=== PATIENT | female | born 1975 | race Caucasian/White ===

== ENCOUNTER 2020-01-12 09:45 | Observation (INO) ==
[2020-01-12] MEDS ORDERED: MoRPHine SULFATE 4 MG/ML 1 ML CARP\\VIAL IV STA (10:35)
[2020-01-12] MEDS ORDERED: SODIUM CHLORIDE 0.9% 1000ML 1,000 ML IV ONE (10:35)
[2020-01-12] MEDS ORDERED: ONDANSETRON INJ 2 MG/ML 2 ML VIAL IV STA (10:41)
--- NOTE | 2020-01-12 10:41 | Emergency Department Note ---
Impression & Plan Acute appendicitis, Ileus ED Provider Note CHIEF COMPLAINT: Right lower abdominal pain HISTORY OF PRESENTING ILLNESS: This is a 44-year-old female who presents to the emergency department by private vehicle with complaint of right lower abdominal pain that started last night. The patient states that the pain has been constant, dull ache, worse with movement, better with rest, and she rates the pain 10/10. She has not tried any medications for the pain. She has had associated nausea, but denies any vomiting. She denies diarrhea or constipation and had a normal bowel movement this morning. She went to see her PCP today, who referred her to the emergency department for further evaluation. She denies any chest pain, shortness of breath, back pain, dizziness or syncope, urinary co mplaints, or unusual rash. She has not had anything to eat or drink since last night around dinnertime. REVIEW OF SYSTEMS: A complete 10 point review of systems was reviewed with the patient with pertinent positives and negatives as per history of present illness. All else were negative. PAST MEDICAL HISTORY: Anxiety, history of gastric bypass surgery SOCIAL HISTORY: Lives at home with family, she denies tobacco use ALLERGIES: Reviewed in chart and with the patient PHYSICAL EXAM: CONSTITUTIONAL: Pleasant and cooperative. Nontoxic-appearing and in no acute distress. Mildly dehydrated, but otherwise well appearing and well nourished. HEENT: Normocephalic, atraumatic. PERRL, EOMI. Pharynx normal. Tacky mucous membranes NECK: Supple, full active range of motion without discomfort. RESPIRATORY: Clear to auscultation bilaterally with no wheezing, crackles, rhonchi or stridor. Equal expansion bilaterally. CARDIOVASCULAR: Regular rate and rhythm with no murmurs, rubs or gallops. Normal peripheral perfusion. No edema. GASTROINTESTINAL: Significantly tender to palpation in the right lower quadrant, positive rebound and slight guarding, tender with light percussion over the right lower quadrant. Positive Rovsing. The remainder of the abdomen is otherwise nontender, soft and nondistended. No palpable masses or HSM. Bowel sounds present in all quadrants. No CVA tenderness bilaterally. MUSCULOSKELETAL: Full range of motion of all joints without discomfort. INTEGUMENTARY: No rash or other significant dermatologic conditions noted. NEUROLOGIC: Alert and oriented X 4 with normal affect. Normal strength and sensation in all 4 extremities. Normal speech. Normal gait observed. ED COURSE AND MEDICAL DECISION MAKING: CC: Patient presenting with complaint of right lower quadrant abdominal pain DIFFERENTIAL DIAGNOSIS: Includes, but not limited to appendicitis, mesenteric adenitis, colitis, gastroenteritis, diverticulitis, cholecystitis, ovarian cyst, ovarian torsion, ectopic , ileus, small bowel obstruction, among others. INTERPRETATION OF LABS: Marked leukocytosis with left shift, no anemia, normal platelets, no significant electrolyte abnormalities, normal renal function, normal liver enzymes and lipase. UA appears contaminated with large epithelial cells negative for bacteria, urine negative. IMAGING: ABDOMEN AND PELVIS CT WITH IV CONTRAST CT DOSE: 369.97 mGy.cm HISTORY: Acute right lower quadrant abdominal pain RLQ pain TECHNIQUE: Multiaxial CT images of the abdomen and pelvis were performed following the IV administration of 94 cc of Optiray 320, A dose lowering technique was utilized adhering to the principles of ALARA. COMPARISON STUDY: None FINDINGS: Trace pleural effusions with minimal dependent subsegmental bibasilar atelectasis. No pneumatosis or pneumoperitoneum. The imaged inferior cardiac chambers are unremarkable. The spleen, pancreas, adrenal glands, gallbladder and liver are unremarkable. Patency of the hepatic and portal veins. Normal appearing kidneys. Urinary bladder is unremarkable. Follicular changes of the ovaries. Uterus is within normal limits. Aorta and IVC are unremarkable. No adenopathy. Postoperative changes of prior Evangelina-en-Y gastric bypass. There is a dropped surgical clip within the inferior right hemipelvis. The majority of the large bowel is decompressed with a few air-fluid levels noted within the cecum and terminal ileum suggestive of sentinel ileus. The appendix is dilated measuring up to 10 mm and fluid-filled with mild wall thickening. There is a 5 mm appendicolith noted within the proximal lumen. Mild periappendiceal stranding without drainable fluid collection. Bilateral breast implants. Soft tissues are otherwise unremarkable. Bones appear intact. IMPRESSION: 1. Acute uncomplicated appendicitis with 5 mm appendicolith. No evidence of perforation or drainable fluid collection. 2. Air-fluid levels of the cecum and terminal ileum are suggestive of focal ileu s. No bowel obstruction. 3. Prior Evangelina-en-Y gastric bypass. MEDICATION RECONCILIATION: I attest that I have personally reviewed the patient's current medication list. INITIAL VITAL SIGNS REVIEW: I reviewed the patient's initial vital signs and interpret them as follows: T: Low-grade fever; BP: Normotensive; HR: Within normal limits; RR: Within normal limits; Pulse Ox: Within normal limits on room air. Blood pressure screening: The patient was found to have normal blood pressure on screening and does not require follow-up for repeat blood pressure check. MDM SUMMARY: Patient was evaluated at bedside, history and physical exam performed. Patient is alert and oriented, no acute distress, resting calmly in stretcher. She is noted to have a low-grade fever of 37.8, but is nontoxic-appearing. She is point tender in the right lower quadrant with positive rebound and slight guarding, no acute abdomen. Orders were placed at bedside for labs, UA, IV fluid bolus for hydration, IV mo rphine for pain, IV Zofran for nausea, CT abdomen/pelvis with IV contrast to evaluate for abdominal pain. Patient discussed with Dr. Kingston, who agrees with my assessment, plan, and disposition. Labs and imaging reviewed as above, labs notable for marked leukocytosis with left shift. CT imaging shows acute uncomplicated appendicitis without perforation or abscess, as well as findings suggestive of a focal ileus but no bowel obstruction. I spoke on the phone with general surgery, they agreed to evaluate the patient for probable admission and OR. Surgery team is in the OR currently and it may be a while till they are able to evaluate the patient. 2 g cefoxitin IV ordered for antibiotic prophylaxis per request of surgical team. Patient reassessed multiple times throughout ED stay, she has remained hemodynamically stable, and reports her pain is improved after the morphine. The patient was updated on all results and plan for admission and plans for surgery today, patient verbalized understanding and was agreeable to this plan. I answered all questions to the best of my ability. The patient was stable at time of admission. The chart was completed utilizing [employer] Speech voice recognition software. Grammatical errors, random word insertions, pronoun errors, and incomplete sente nces are an occasional consequence of this system due to software limitations, ambient noise, and hardware issues. Any formal questions or concerns about the content, text, or information contained within the body of this dictation should be directly addressed to the nurse practitioner for clarification. Past Med/Surg History Medical History (Updated 01/12/20 @ 16:55 by RADHA Menjivar) Seizure Surgical History S/P breast augmentation S/P gastric bypass Social History Smoking Status: Never smoker Second Hand Exposure: No; Do You Dip or Chew Tobacco: No; Tobacco Cessation Education Requested by Patient: No Hx Alcohol Use: Yes Hx Substance Use: No Preferred Language: Samoan Communication Ability: Effective Basket Weaver Required: No Beliefs That Will Affect Care: None Current Living Situation: Alone Other Information That Helps Us Care for You: No Feels Safe at Home: Yes Safety Concerns: Feels Safe At This Time Allergies Allergies Allergy/AdvReac Type Severity Reaction Status Date / Time codeine AdvReac Verified 01/12/20 15:37 Home Meds Home Medications Medication Instructions Recorded Confirmed biotin 0 mg PO QAM 01/12/20 01/12/20 cholecalciferol (vitamin D3) 0 mcg PO QAM 01/12/20 01/12/20 [Vitamin D3] escitalopram oxalate [Lexapro] 0 mg PO QDL 01/12/20 01/12/20 ferrous sulfate [iron] 325 mg PO QAM 01/12/20 01/12/20 folic acid 0 mg PO QAM 01/12/20 01/12/20 topiramate [Topamax] 100 mg PO BID 01/12/20 01/12/20 Results & Data (ED) Vital Signs Vital Signs - 24 hr 01/12/20 10:15 01/12/20 12:50 01/12/20 14:00 Temperature 37.8 C H Temperature Source Oral Pulse Rate 82 Pulse Rate [Right Finger] 88 75 Respiratory Rate 16 18 18 Respiratory Effort / Characteristics Non-Labored Spontaneous Non-Labored Spontaneous Non-Labored Spontaneous Respiratory Depth Normal Normal Normal Respiratory Pattern Regular Blood Pressure 113/67 Blood Pressure [Left Arm] 117/66 105/66 Blood Pressure Mean 82 Blood Pressure Mean [Left Arm] 83 79 Blood Pressure Position Sitting Blood Pressure Position [Left Arm] Lying Lying Pulse Oximetry 99 99 100 Oxygen Delivery Method Room Air Room Air Room Air Sepsis Recent Fever Within 48 Hours No Sepsis New/Unexplained Change in Mental Status No Sepsis Action Taken by Nursing No Action Required 01/12/20 15:31 Temperature 37.8 C H Temperature Source Oral Pulse Rate Pulse Rate [Right Finger] 85 Respiratory Rate 18 Respiratory Effort / Characteristics Non-Labored Spontaneous Respiratory Depth Normal Respiratory Pattern Regular Blood Pressure Blood Pressure [Left Arm] 113/74 Blood Pressure Mean Blood Pressure Mean [Left Arm] 87 Blood Pressure Position Blood Pressure Position [Left Arm] Semi-fowlers Pulse Oximetry 100 Oxygen Delivery Method Room Air Sepsis Recent Fever Within 48 Hours Sepsis New/Unexplained Change in Mental Status Sepsis Action Taken by Nursing Laboratory Data Result diagrams: 01/12/20 11:05 01/12/20 12:10 Lab Results 01/12/20 01/12/20 01/12/20 Range/Units 11:05 11:05 11:05 WBC 22.05 H (4.8-10.8) K/uL RBC 4.65 (4.2-5.4) M/uL Hgb 14.1 (12.0-16.0) g/dL Hct 43.3 (37-47) % MCV 93.1 (80-100) fL MCH 30.3 (25-34) pg MCHC 32.6 (32-36) g/dL RDW Std Deviation 45.6 (36.4-46.3) fL RDW Coeff of Kylee 13.3 (11.5-14.5) % Plt Count 215 (130-400) K/uL MPV 11.9 H (7.4-10.4) fL Immature Gran % (Auto) 0.3 % Neut % (Auto) 89.9 % Lymph % (Auto) 4.1 % Charles % (Auto) 5.6 % Eos % (Auto) 0.0 % Baso % (Auto) 0.1 % Neut # (Auto) 19.83 H (1.4-6.5) K/uL Lymph # (Auto) 0.90 L (1.2-3.4) K/uL Charles # (Auto) 1.23 H (0.11-0.59) K/uL Eos # (Auto) 0.00 (0-0.5) K/uL Baso # (Auto) 0.02 (0-0.2) K/uL Immature Gran # (Auto) 0.07 H (0.00-0.02) K/uL Sodium 139 (136-145) mmol/L Potassium (3.5-5.1) mmol/L Chloride 111 H (98-107) mmol/L Carbon Dioxide 21 (21-32) mmol/L Anion Gap 7.0 (3-11) BUN 12 (7-18) mg/dl Creatinine 0.71 (0.6-1.2) mg/dl Est Cr Clr Drug Dosing 96.2 ml/min Est GFR ( Amer) 120.1 Est GFR (Non-Af Amer) 103.6 BUN/Creatinine Ratio 17.2 (10-20) Glucose 112 H (70-99) mg/dl Calcium 8.7 (8.5-10.1) mg/dl Total Bilirubin 0.6 (0.2-1) mg/dl AST (15-37) U/L ALT 21 (12-78) U/L Alkaline Phosphatase 45 (45-117) U/L Total Protein 7.5 (6.4-8.2) gm/dl Albumin 3.5 (3.4-5.0) gm/dl Globulin 4.0 (2.5-4.0) gm/dl Albumin/Globulin Ratio 0.9 (0.9-2) Lipase 96 (73-393) U/L Urine Color Yellow Urine Appearance Clear (Clear) Urine pH 7.0 (4.5-7.5) Ur Specific [place] 1.024 (1.000-1.030) Urine Protein Trace H (Negative) Urine Glucose (UA) 1+ H (Negative) Urine Ketones 1+ H (Negative) Urine Blood 1+ H (Negative) Urine Nitrite Negative (Negative) Urine Bilirubin Negative (Negative) Urine Urobilinogen Negative (Negative) Ur Leukocyte Esterase Negative (Negative) Urine WBC (Auto) 1-5 (0-5) /hpf Urine RBC (Auto) 0-4 (0-4) /hpf U Hyaline Cast (Auto) 1-5 (0-5) /lpf U Epithel Cells (Auto) >30 H (0-5) /lpf Urine Bacteria (Auto) Negative (Negative) POC Ur Test (NEG) COVID-19 Eval Order SARS-CoV-2, RNA, NAAT (NEGATIVE) 01/12/20 01/12/20 01/12/20 Range/Units 11:05 12:10 14:59 WBC (4.8-10.8) K/uL RBC (4.2-5.4) M/uL Hgb (12.0-16.0) g/dL Hct (37-47) % MCV (80-100) fL MCH (25-34) pg MCHC (32-36) g/dL RDW Std Deviation (36.4-46.3) fL RDW Coeff of Kylee (11.5-14.5) % Plt Count (130-400) K/uL MPV (7.4-10.4) fL Immature Gran % (Auto) % Neut % (Auto) % Lymph % (Auto) % Charles % (Auto) % Eos % (Auto) % Baso % (Auto) % Neut # (Auto) (1.4-6.5) K/uL Lymph # (Auto) (1.2-3.4) K/uL Charles # (Auto) (0.11-0.59) K/uL Eos # (Auto) (0-0.5) K/uL Baso # (Auto) (0-0.2) K/uL Immature Gran # (Auto) (0.00-0.02) K/uL Sodium (136-145) mmol/L Potassium 3.9 (3.5-5.1) mmol/L Chloride (98-107) mmol/L Carbon Dioxide (21-32) mmol/L Anion Gap (3-11) BUN (7-18) mg/dl Creatinine (0.6-1.2) mg/dl Est Cr Clr Drug Dosing ml/min Est GFR ( Amer) Est GFR (Non-Af Amer) BUN/Creatinine Ratio (10-20) Glucose (70-99) mg/dl Calcium (8.5-10.1) mg/dl Total Bilirubin (0.2-1) mg/dl AST 11 L (15-37) U/L ALT (12-78) U/L Alkaline Phosphatase (45-117) U/L Total Protein (6.4-8.2) gm/dl Albumin (3.4-5.0) gm/dl Globulin (2.5-4.0) gm/dl Albumin/Globulin Ratio (0.9-2) Lipase (73-393) U/L Urine Color Urine Appearance (Clear) Urine pH (4.5-7.5) Ur Specific [place] (1.000-1.030) Urine Protein (Negative) Urine Glucose (UA) (Negative) Urine Ketones (Negative) Urine Blood (Negative) Urine Nitrite (Negative) Urine Bilirubin (Negative) Urine Urobilinogen (Negative) Ur Leukocyte Esterase (Negative) Urine WBC (Auto) (0-5) /hpf Urine RBC (Auto) (0-4) /hpf U Hyaline Cast (Auto) (0-5) /lpf U Epithel Cells (Auto) (0-5) /lpf Urine Bacteria (Auto) (Negative) POC Ur Test NEG (NEG) COVID-19 Eval [facility] SARS-[facility]-2, RNA, NAAT (NEGATIVE) 01/12/20 Range/Units 14:59 WBC (4.8-10.8) K/uL RBC (4.2-5.4) M/uL Hgb (12.0-16.0) g/dL Hct (37-47) % MCV (80-100) fL MCH (25-34) pg MCHC (32-36) g/dL RDW Std Deviation (36.4-46.3) fL RDW Coeff of Kylee (11.5-14.5) % Plt Count (130-400) K/uL MPV (7.4-10.4) fL Immature Gran % (Auto) % Neut % (Auto) % Lymph % (Auto) % Charles % (Auto) % Eos % (Auto) % Baso % (Auto) % Neut # (Auto) (1.4-6.5) K/uL Lymph # (Auto) (1.2-3.4) K/uL Charles # (Auto) (0.11-0.59) K/uL Eos # (Auto) (0-0.5) K/uL Baso # (Auto) (0-0.2) K/uL Immature Gran # (Auto) (0.00-0.02) K/uL Sodium (136-145) mmol/L Potassium (3.5-5.1) mmol/L Chloride (98-107) mmol/L Carbon Dioxide (21-32) mmol/L Anion Gap (3-11) BUN (7-18) mg/dl Creatinine (0.6-1.2) mg/dl Est Cr Clr Drug Dosing ml/min Est GFR ( Amer) Est GFR (Non-Af Amer) BUN/Creatinine Ratio (10-20) Glucose (70-99) mg/dl Calcium (8.5-10.1) mg/dl Total Bilirubin (0.2-1) mg/dl AST (15-37) U/L ALT (12-78) U/L Alkaline Phosphatase (45-117) U/L Total Protein (6.4-8.2) gm/dl Albumin (3.4-5.0) gm/dl Globulin (2.5-4.0) gm/dl Albumin/Globulin Ratio (0.9-2) Lipase (73-393) U/L Urine Color Urine Appearance (Clear) Urine pH (4.5-7.5) Ur Specific [place] (1.000-1.030) Urine Protein (Negative) Urine Glucose (UA) (Negative) Urine Ketones (Negative) Urine Blood (Negative) Urine Nitrite (Negative) Urine Bilirubin (Negative) Urine Urobilinogen (Negative) Ur Leukocyte Esterase (Negative) Urine WBC (Auto) (0-5) /hpf Urine RBC (Auto) (0-4) /hpf U Hyaline Cast (Auto) (0-5) /lpf U Epithel Cells (Auto) (0-5) /lpf Urine Bacteria (Auto) (Negative) POC Ur Test (NEG) COVID-19 Eval Order SARS-CoV-2, RNA, NAAT NEGATIVE (NEGATIVE) Administered Medications Discontinued Medications Bupivacaine HCl (Bupivacaine 0.5 % 5 Mg/1 Ml Mpf 30ml Vial) Confirm Administered Dose 30 ml .ROUTE .STK-MED ONE Stop: 01/12/20 15:10 Last Admin: 01/12/20 16:34 Dose: 30 ml Documented by: [id number] Sodium Chloride (Nss 1000ml) 1,000 mls @ 999 mls/hr IV .Q1H1M ONE Stop: 01/12/20 11:35 Last Infusion: 01/12/20 12:26 Dose: 0 mls/hr Documented by: [id number] Admin: 01/12/20 11:19 Dose: 999 mls/hr Documented by: [id number] Cefoxitin Sodium (Mefoxin) 2,000 mg in 60 mls @ 100 mls/hr IV NOW STA Stop: 01/12/20 13:33 Last Infusion: 01/12/20 13:57 Dose: 0 mls/hr Documented by: [id number] Admin: 01/12/20 13:17 Dose: 100 mls/hr Documented by: [id number] Morphine Sulfate (Morphine Sulfate 4 Mg/Ml 1 Ml Carp\Vial) 4 mg IV NOW STA Stop: 01/12/20 10:36 Last Admin: 01/12/20 11:18 Dose: 4 mg Documented by: [id number] Ondansetron HCl (Ondansetron Inj 2 Mg/Ml 2 Ml Vial) 4 mg IV NOW STA Stop: 01/12/20 10:42 Last Admin: 01/12/20 11:19 Dose: 4 mg Documented by: [id number] Discharge Plan Visit Data Chief Complaint: Abdominal Pain Stated Complaint: RT SIDED ABD PAIN ED Provider: Adams Kingston ED Midlevel Provider: Grace Graf Discharge Problem: Acute appendicitis, Ileus Patient Disposition: Being Evaluated by Surgeon Discharge Instructions Interventions: ED Discharge Assessment Last Done: 01/12/20 15:16 Discharge Problem: Acute appendicitis Qualifiers: Acute appendicitis type: with localized peritonitis Appendicitis gangrene presence: unspecified whether gangrene present Appendicitis perforation presence: without perforation Appendicitis abscess presence: without abscess Qualified Code(s): K35.30 - Acute appendicitis with localized peritonitis, without perforation or gangrene
[2020-01-12 11:20] LABS: Basophils # (auto) 0.02 K/uL (0-0.2); Basophils % (auto) 0.1 %; Hematocrit (blood only) 43.3 % (37-47); Hemoglobin 14.1 g/dL (12.0-16.0); Immature Granulocytes # (auto) 0.07 K/uL (0.00-0.02); Immature Granulocytes % (auto) 0.3 %; Lymphocytes % (auto) 4.1 %; Mean Corpuscular Hemoglobin 30.3 pg (25-34); Mean Corpuscular Hgb Conc 32.6 g/dL (32-36); Mean Corpuscular Volume 93.1 fL (80-100); Mean Platelet Volume 11.9 fL (7.4-10.4); Monocytes # (auto) 1.23 K/uL (0.11-0.59); Monocytes % (auto) 5.6 %; Neutrophils # (auto) 19.83 K/uL (1.4-6.5); Neutrophils % (auto) 89.9 %; Platelet Count 215 K/uL (130-400); RDW Coefficient of Variation 13.3 % (11.5-14.5); RDW Standard Deviation 45.6 fL (36.4-46.3); Red Blood Count 4.65 M/uL (4.2-5.4); White Blood Count 22.05 K/uL (4.8-10.8)
[2020-01-12 11:23] LABS: Appearance Urine Clear (Clear); Bacteria Urine Automated Negative (Negative); Bilirubin Urine Negative (Negative); Blood Urine 1+ (Negative); Color Urine Yellow; Epithelial Cell Urine Auto >30 /lpf (0-5); Glucose Urine UA 1+ (Negative); Ketones Urine 1+ (Negative); Leukocyte Esterase Urine Negative (Negative); Nitrite Urine Negative (Negative); Protein Urine Trace (Negative); RBC Urine Automated 0-4 /hpf (0-4); Specific Gravity Urine 1.024 (1.000-1.030); Urobilinogen Urine Negative (Negative)
[2020-01-12 11:45] LABS: Albumin Globulin Ratio 0.9 (0.9-2); Albumin Level 3.5 gm/dl (3.4-5.0); BUN Creatinine Ratio 17.2 (10-20); Bilirubin,Total 0.6 mg/dl (0.2-1); Calcium 8.7 mg/dl (8.5-10.1); Creatinine Clr Calc Pharmacy 96.2 ml/min; Est GFR (African American) 120.1; Est GFR (Non-African American) 103.6; Total Protein 7.5 gm/dl (6.4-8.2)
[2020-01-12] MEDS ORDERED: IOVERSOL 100ml IV ONE (11:52)
[2020-01-12 12:33] LABS: Potassium 3.9 mmol/L (3.5-5.1)
--- NOTE | 2020-01-12 12:49 | CT Scan Report ---
ABDOMEN AND PELVIS CT WITH IV CONTRAST CT DOSE: 369.97 mGy.cm HISTORY: Acute right lower quadrant abdominal pain RLQ pain TECHNIQUE: Multiaxial CT images of the abdomen and pelvis were performed following the IV administrat ion of 94 cc of Optiray 320, A dose lowering technique was utilized adhering to the principles of [place] TARIK. COMPARISON STUDY: None FINDINGS: Trace pleural effusions with minimal dependent subsegmental bibasilar atelectasis. No pneumatosis or pneumoperitoneum. The imaged inferior cardiac chambers are unremarkable. The spleen, pancreas, adrena l glands, gallbladder and liver are unremarkable. Patency of the hepatic and portal veins. Normal lesli earing kidneys. Urinary bladder is unremarkable. Follicular changes of the ovaries. Uterus is within normal limits. Aorta and IVC are unremarkable. No adenopathy. Postoperative changes of prior Evangelina-en-Y gastric bypass. There is a dropped surgical clip within the inferior right hemipelvis. The majority of the large bowel is decompressed with a few air-fluid level s noted within the cecum and terminal ileum suggestive of sentinel ileus. The appendix is dilated connie suring up to 10 mm and fluid-filled with mild wall thickening. There is a 5 mm appendicolith noted wi thin the proximal lumen. Mild periappendiceal stranding without drainable fluid collection. Bilateral breast implants. Soft tissues are otherwise unremarkable. Bones appear intact. IMPRESSION: 1. Acute uncomplicated appendicitis with 5 mm appendicolith. No evidence of perforation or drainable fluid collection. 2. Air-fluid levels of the cecum and terminal ileum are suggestive of focal ileus. No bowel obstructi on. 3. Prior Evangelina-en-Y gastric bypass. ACT 112: Negative or not required by law. The above report was generated using voice recognition software. It may contain grammatical, syntax o r spelling errors. Electronically signed by: Zev Langston M.D. 01/12/2020 12:47 PM
[2020-01-12] MEDS ORDERED: cefOXitin 2,000 MG/60 ML BAG IV STA (12:58)
--- NOTE | 2020-01-12 14:24 | History & Physical Report ---
Date of Service January 12, 2020 Assessment & Plan (1) Acute appendicitis: 44 yr old woman with history of gastric bypass and now with acute appendicitis. Discussed laparoscopic appendectomy with risks of bleeding, infection, conversion to open, postop ileus/ abscess, negative appy. Consent signed. For OR today. Present on Admission?: Yes History of Present Illness Chief Complaint: abdominal pain Primary Care Provider: Adams Sousa Capp, DO 44 yr old woman who presents with 10/10 right lower quadrant abdominal pain which began last night. Focused in right lower quadrant, no radiation, worse with movement, associated with nausea but no vomiting. No fevers, no similar episodes in past. No relieving factors. CT scan showed acute appendicitis. She has a history of seizure disorder but has not had any seizures in last few years, history of lap gastric bypass with over 100 lb weight loss. Allergies Allergy/AdvReac Type Severity Reaction Status Date / Time No Known Allergies Allergy Unverified 01/12/20 11:34 Home Medications Home Medications Medication Instructions Recorded Confirmed Type biotin 0 mg PO QAM 01/12/20 01/12/20 History cholecalciferol (vitamin D3) 0 mcg PO QAM 01/12/20 01/12/20 History [Vitamin D3] escitalopram oxalate [Lexapro] 0 mg PO QDL 01/12/20 01/12/20 History ferrous sulfate [iron] 325 mg PO QAM 01/12/20 01/12/20 History folic acid 0 mg PO QAM 01/12/20 01/12/20 History topiramate [Topamax] 0 mg PO BID 01/12/20 01/12/20 History Past Med/Surg History Social History Smoking Status: Never smoker Second Hand Exposure: No; Do You Dip or Chew Tobacco: No; Tobacco Cessation Education Requested by Patient: No Hx Alcohol Use: Yes Hx Substance Use: No Preferred Language: Niuean Communication Ability: Effective Steam Shovel Oiler Required: No Beliefs That Will Affect Care: None Current Living Situation: Alone Other Information That Helps Us Care for You: No Feels Safe at Home: Yes Safety Concerns: Feels Safe At This Time Review of Systems Review of Systems: All systems reviewed & are unremarkable except as noted in HPI & below Physical Exam Constitutional: WD/WN, vitals as above Eyes: PERRL, conjunctivae normal, anicteric sclerae Neck: normal visual inspection Respiratory: normal respiratory effort, lungs clear to auscultation Cardiovascular: RRR, no murmur, no edema Gastrointestinal (Abdomen): Inspection/Auscultation: normal bowel sounds; abdomen not distended Percussion/Palpation: + abdomen tender (most acute in RLQ but tender diffusely), + guarding (RLQ) and abdomen soft Neurologic: moves all extremities; no focal motor deficits Psychiatric: A+Ox3, euthymic affect Results & Data Results & Data ([facility]) Vital Signs (Past 12 Hours) Vital Signs Temp Pulse Pulse Resp BP BP Pulse Ox 01/12/20 12:50 88 18 117/66 99 01/12/20 10:15 37.8 C H 82 16 113/67 99 Laboratory Results Abnormal lab results 01/12/20 01/12/20 01/12/20 Range/Units 11:05 11:05 11:05 WBC 22.05 H (4.8-10.8) K/uL MPV 11.9 H (7.4-10.4) fL Neut # (Auto) 19.83 H (1.4-6.5) K/uL Lymph # (Auto) 0.90 L (1.2-3.4) K/uL [place] # (Auto) 1.23 H (0.11-0.59) K/uL Immature Gran # (Auto) 0.07 H (0.00-0.02) K/uL Chloride 111 H (98-107) mmol/L Glucose 112 H (70-99) mg/dl AST (15-37) U/L Urine Protein Trace H (Negative) Urine Glucose (UA) 1+ H (Negative) Urine Ketones 1+ H (Negative) Urine Blood 1+ H (Negative) U Epithel Cells (Auto) >30 H (0-5) /lpf 01/12/20 Range/Units 12:10 WBC (4.8-10.8) K/uL MPV (7.4-10.4) fL Neut # (Auto) (1.4-6.5) K/uL Lymph # (Auto) (1.2-3.4) K/uL [place] # (Auto) (0.11-0.59) K/uL Immature Gran # (Auto) (0.00-0.02) K/uL Chloride (98-107) mmol/L Glucose (70-99) mg/dl AST 11 L (15-37) U/L Urine Protein (Negative) Urine Glucose (UA) (Negative) Urine Ketones (Negative) Urine Blood (Negative) U Epithel Cells (Auto) (0-5) /lpf Diagnostic Findings ABDOMEN AND PELVIS CT WITH IV CONTRAST CT DOSE: 369.97 mGy.cm HISTORY: Acute right lower quadrant abdominal pain RLQ pain TECHNIQUE: Multiaxial CT images of the abdomen and pelvis were performed following the IV administration of 94 cc of Optiray 320, A dose lowering technique was utilized adhering to the principles of ALARA. COMPARISON STUDY: None FINDINGS: Trace pleural effusions with minimal dependent subsegmental bibasilar atelectasis. No pneumatosis or pneumoperitoneum. The imaged inferior cardiac chambers are unremarkable. The spleen, pancreas, adrenal glands, gallbladder and liver are unremarkable. Patency of the hepatic and portal veins. Normal appearing kidneys. Urinary bladder is unremarkable. Follicular changes of the ovaries. Uterus is within normal limits. Aorta and IVC are unremarkable. No adenopathy. Postoperative changes of prior Evangelina-en-Y gastric bypass. There is a dropped surgical clip within the inferior right hemipelvis. The majority of the large bowel is decompressed with a few air-fluid levels noted within the cecum and terminal ileum suggestive of sentinel ileus. The appendix is dilated measuring up to 10 mm and fluid-filled with mild wall thickening. There is a 5 mm appendicolith noted within the proximal lumen. Mild periappendiceal stranding without drainable fluid collection. Bilateral breast implants. Soft tissues are otherwise unremarkable. Bones appear intact. IMPRESSION: 1. Acute uncomplicated appendicitis with 5 mm appendicolith. No evidence of perforation or drainable fluid collection. 2. Air-fluid levels of the cecum and terminal ileum are suggestive of focal ileus. No bowel obstruction. 3. Prior Evangelina-en-Y gastric bypass. (1) Acute appendicitis Acute appendicitis type: with localized peritonitis Appendicitis gangrene presence: without gangrene Appendicitis perforation presence: without perforation Appendicitis abscess presence: without abscess Qualified Code(s): K35.30 - Acute appendicitis with localized peritonitis, without perforation or gangrene
[2020-01-12] MEDS ORDERED: ePHEDrine sulfate 50 MG/ML AMP IV PRN (15:03)
[2020-01-12] MEDS ORDERED: fentaNYL citrate 100 MCG/2 ML VIAL IV PRN (15:03)
[2020-01-12] MEDS ORDERED: ATROPINE SULFATE 0.1 MG/ML 10ML SYR IV PRN (15:03)
[2020-01-12] MEDS ORDERED: ONDANSETRON INJ 2 MG/ML 2 ML VIAL IV PRN ×2 (15:03→18:08)
[2020-01-12] MEDS ORDERED: LIDOCAINE HCL 2% 2 ML VIAL/AMP(20MG/ML) INFIL ONE (15:04)
[2020-01-12] MEDS ORDERED: DEXAMETHASONE SOD INJ 4 MG/ML VIAL ONE (15:04)
[2020-01-12] MEDS ORDERED: PROPOFOL IV EMULSION 10 MG/ML 20 ML VIAL IV ONE (15:04)
[2020-01-12] MEDS ORDERED: ROCURONIUM BROMIDE 10 MG/ML 5 ML VIAL IV ONE (15:04)
[2020-01-12] MEDS ORDERED: ONDANSETRON INJ 2 MG/ML 2 ML VIAL ONE (15:04)
[2020-01-12] MEDS ORDERED: fentaNYL citrate 100 MCG/2 ML VIAL ONE (15:05)
[2020-01-12] MEDS ORDERED: MIDAZOLAM HCL 1 MG/ML 2ML VIAL ONE (15:05)
[2020-01-12] MEDS ORDERED: BUPIVACAINE 0.5 % 5 MG/1 ML MPF 30ML VIAL ONE (15:09)
--- OUTSIDE RECORDS SUMMARY | 2020-01-12 15:15 | External Medical Summary | Continuity of Care Document ---
:1975 Author Name Yasmany Allen, Provider Address Unavailable Unavailable , Care Team Providers Name Role Phone Casey Allen Tiffany Unavailable [email or web address] MARIA DOLORES CAMERON Unavailable Unavailable Assessments Assessed Problems:Encounter for cosmetic surgery Problems Encounter for cosmetic surgery (V50.1) (Z41.1) Allergies and Adverse Reactions No Known Drug Allergies (Allergy) Medications No Reported Medications Refills: 0 Procedures History of Dilation And Curettage Status : Completed History of Gastric Surgery For Morbid Obesity Gastric Bypass Status: Completed History of Wrist Surgery Status: Complet ed History of Tubal Ligation Status: Comple amanda Immunizations Immunizations not documented Family History Mother Family history of myocardial infarction (V17.3) (Z82.49) Sta tus: Active Father Family history of cardiac disorder (V17.49) (Z82.49) Status: Active Grandmother Family history of malignant neoplasm of breast (V16.3) (Z80. 3) Status: Active Sister Family history of skin cancer (V16.8) (Z80.8) Status: Active Social History - Smoking Status Never smoked tobacco Interventions Discussion/SummaryOptions were discussed. I recommended performing body lift as an initial 1st stage. I described the procedure, location incisions, use of surgical drains, overnight hospital stay, support garment, Henderson catheter. Discussed anticipated recovery including lifting restrictions. Discussed risks such as bleeding, infection, poor scarring or prolonged wound healing given the extent of the incisions. Also discussed possibility of skin necrosis or umbilical necrosis, seroma. We also discussed that body contouring surgery can never get the skin as tight as patients would desire. We discussed breast surgery could be performed as a second-stage along with thigh lift which would also be performed the hospital. I would recommend beginning with breast augmentation, followed by mastopexy if needed. However, I do not think mastopexy would ultimately be required. Probably would plan to use an ultra high-profile i mplant with dual plane approach. Described location incision, procedure, recovery. Discussed risks such as a LCL, capsular contracture, bleeding or infection, need for implant replacement, delay and breast cancer diagnosis, implant rupture, malposition, extrusion, change in nipple sensation. Lastly, di scussed thigh lift and risks including numbness of the skin, poor scarring, wound healing complications, again inability to get skin as tight as patients would desire. Questions were answered. Photographs of reasonable results were reviewed. Fees were quoted. Plan of Treatment Planned Observations Planned Goals not documented Results No Known Results Results not documented Encounters Appointment; Tiffany Peña M.D. 05-Jun-2016 13:10 Encounter Diagnosis: Problem not documented
--- NOTE | 2020-01-12 15:33 | Anesthesiology Consultation ---
Date of Service January 12, 2020 Assessment & Plan (1) Encounter for pre-operative examination: Chart Review Chart Review: Acceptable Risk for Surgery Consults Requested none ASA [id number] Proposed Anesthesia Anesthesia Type: General Risk / Benefits Reviewed With: PT / POA / Parent / Guardian, Accepts Plan and Informed Consent Obtained History Surgery Operation Date: 01/12/20 17:35 Proposed Procedures p Laparoscopic Appendectomy - Barbara Bernal MD Height/Weight Height: 5 ft 3 in Weight: 72 kg Allergies Allergy/AdvReac Type Severity Reaction Status Date / Time No Known Allergies Allergy Unverified 01/12/20 11:34 Medications Home Medications Medication Instructions Recorded Confirmed Last Taken biotin 0 mg PO QAM 01/12/20 01/12/20 01/11/20 cholecalciferol (vitamin D3) 0 mcg PO QAM 01/12/20 01/12/20 01/11/20 [Vitamin D3] escitalopram oxalate [Lexapro] 0 mg PO QDL 01/12/20 01/12/20 01/11/20 ferrous sulfate [iron] 325 mg PO QAM 01/12/20 01/12/20 01/11/20 folic acid 0 mg PO QAM 01/12/20 01/12/20 01/11/20 topiramate [Topamax] 0 mg PO BID 01/12/20 01/12/20 01/11/20 NPO Date Last Intake of Fluids: 01/12/20 Time Last Intake of Fluids: 00:00 Date Last Intake of Solids: 01/12/20 Time Last Intake of Solids: 00:00 Past Medical History Medical History (Updated 01/12/20 @ 15:35 by Darell Fields DO) Seizure Exercise / Class Metabolic Activity II 4-5 Yardwork/Stairs/Walk up hill Past Surgical History Surgical History (Updated 01/12/20 @ 15:31 by Darell Fields DO) S/P breast augmentation S/P gastric bypass Past Anesthesia History No Hx of Anesthesia Complications and No Family Hx of Anesthesia Complications History of PONV No Hx of PONV and No Hx of Motion Sickness Social History Smoking Status: Never smoker Do You Dip or Chew Tobacco: No Hx Alcohol Use: Yes alcohol intake frequency: other Alcohol Intake Frequency Comment: 2 drinks a week Hx Substance Use: No substance use type: does not use Physical Exam Vital Signs Last Vital Signs Temp 100.0 F H 01/12/20 10:15 Pulse 75 01/12/20 14:00 Resp 18 01/12/20 14:00 BP 105/66 01/12/20 14:00 Pulse Ox 100 01/12/20 14:00 ENMT Mouth: no dentition abnormality Thyromental Distance: > or= 3.5 Finger Breadths Mallampati Class: II Neck normal visual inspection Respiratory normal respiratory effort Auscultation: lungs clear to auscultation bilaterally Cardiovascular Rate/Rhythm: regular rate and regular rhythm Testing Laboratory Results 01/12/20 11:05 01/12/20 12:10 Urine Color Yellow 01/12/20 11:05 Urine Appearance Clear (Clear) 01/12/20 11:05 Urine pH 7.0 (4.5-7.5) 01/12/20 11:05 Ur Specific [place] 1.024 (1.000-1.030) 01/12/20 11:05 Urine Protein Trace (Negative) H 01/12/20 11:05 Urine Glucose (UA) 1+ (Negative) H 01/12/20 11:05 Urine Ketones 1+ (Negative) H 01/12/20 11:05 Urine Nitrite Negative (Negative) 01/12/20 11:05 Ur Leukocyte Esterase Negative (Negative) 01/12/20 11:05 Urine WBC (Auto) 1-5 /hpf (0-5) 01/12/20 11:05 Urine RBC (Auto) 0-4 /hpf (0-4) 01/12/20 11:05 U Hyaline Cast (Auto) 1-5 /lpf (0-5) 01/12/20 11:05 U Epithel Cells (Auto) >30 /lpf (0-5) H 01/12/20 11:05 Urine Bacteria (Auto) Negative (Negative) 01/12/20 11:05 01/12/20 11:05 POC Ur Test NEG
[2020-01-12] MEDS ORDERED: GLYCOPYRROLATE 0.2 MG/ML VIAL ONE (16:40)
[2020-01-12] MEDS ORDERED: NEOSTIGMINE METHYLSULFATE 5 MG/5 ML SYR ONE (16:40)
--- NOTE | 2020-01-12 16:46 | Operative Report ---
Post Operative Report Pre & Post Diagnosis Operation Date: 01/12/20 17:35 Pre-Op Diagnosis: Appendicitis Post-Op Diagnosis: Appendicitis I identified the patient and participated in the time-out.: Yes Procedure Operation Date: 01/12/20 17:35 Actual Procedures p Laparoscopic Appendectomy(Not Applicable) - Barbara Bernal MD Surgeon Barbara Bernal MD Solar Systems Designer none Estimated Blood Loss 5 Findings Consistent with Post-Op Diagnosis Specimens appendix Description of Procedure See dictated operative note I attest to the content of the Intraoperative Record and any orders documented therein. Any exceptions are noted below.
--- NOTE | 2020-01-12 17:42 | Operative Report (OR) ---
DATE OF OPERATION: 01/12/2020 PREOPERATIVE DIAGNOSIS: Acute appendicitis. POSTOPERATIVE DIAGNOSIS: Acute appendicitis. OPERATIVE PROCEDURE: Laparoscopic appendectomy. SURGEON: Barbara Bernal MD. RACKING TECHNICIAN: None. ANESTHESIA: General endotracheal anesthesia. ESTIMATED BLOOD LOSS: 5 mL. INTRAVENOUS FLUIDS: 600 mL. COMPLICATIONS: None. OPERATIVE FINDINGS: Acute suppurative appendicitis without perforation. INDICATIONS: Ms. Rico is a 44-year-old woman with a history of prior laparoscopic gastric bypass, who presented with acute appendicitis. She was counseled regarding the need for laparoscopic appendectomy. DESCRIPTION OF PROCEDURE: The patient received cefoxitin preoperatively. After the placement of sequential compression devices, she underwent induction of general endotracheal anesthesia. Her abdomen was prepped and draped in the usual sterile fashion. She was positioned with her left arm tucked and in Trendelenburg. A supraumbilical incision was made. A Veress needle was placed into the peritoneal cavity. This was tested with the saline drop test. Initial pressure was 1 mmHg and this was taken to 15 mmHg. A 12 mm trocar was placed by putting the camera through the trocar port and entering the abdomen under direct vision. The initial inspection of the abdomen revealed a single solitary adhesion of omentum to above the umbilical site. This was taken down so as to prevent torsion in the future. Two additional trocars were placed, a 5 mm in the left lower quadrant, 5 mm in the midline pubic area. The appendix was visualized. This had quite suppurative changes along its mid to distal aspect. A window was created at the base of the appendix and it was divided off the cecum with a firing of the LANDEN blue load stapler. The mesentery was taken with a cheng load of the stapler. There was no bleeding noted. The appendix was placed in Endobag and removed through the umbilical incision. Hemostasis was noted to be present. The abdomen and pelvis were suctioned clear. The trocars were removed and pneumoperitoneum released. 30 mL of 0.5% Marcaine had been used for local anesthesia throughout the procedure. The umbilical fascia was closed with 0 Vicryl stitches placed anteriorly. The skin of all 3 incisions closed with running subcuticular 4-0 Vicryl suture. Steri-Strips and sterile dressings were applied. She was awakened and taken to recovery in stable condition. I attest to the content of the Intraoperative Record and any orders documented therein. Any exception s are noted below.
--- NOTE | 2020-01-12 17:57 | Anesthesiology Progress Note ---
Date of Service January 12, 2020 Anesthesia Post Procedure Vital Signs Vital Signs: Temp Pulse Pulse Pulse Resp BP BP 01/12/20 17:55 68 16 97/56 L 01/12/20 17:45 99.5 F 65 14 101/56 L 01/12/20 17:35 68 18 104/58 L 01/12/20 17:25 69 18 113/57 L 01/12/20 17:16 99.7 F H 66 20 111/63 01/12/20 15:31 100.0 F H 85 18 113/74 01/12/20 14:00 75 18 105/66 01/12/20 12:50 88 18 117/66 01/12/20 10:15 100.0 F H 82 16 113/67 Pulse Ox 01/12/20 17:55 96 01/12/20 17:45 97 01/12/20 17:35 98 01/12/20 17:25 100 01/12/20 17:16 100 01/12/20 15:31 100 01/12/20 14:00 100 01/12/20 12:50 99 01/12/20 10:15 99 Pain Intensity Abdomen: Pain Intensity: 2 Transfer of Care Handoff Completed per policy Notes Mental Status: alert / awake / arousable and participated in evaluation Patient Amnestic to Procedure: Yes Nausea / Vomiting: adequately controlled Pain: adequately controlled Airway Patency, RR, SpO2: stable & adequate BP & HR: stable & adequate Hydration State: stable & adequate Anesthetic Complications: no major complications apparent and Pt Satisfied with anesthetic care
[2020-01-12] MEDS ORDERED: MoRPHine SULFATE 4 MG/ML 1 ML CARP\\VIAL IV PRN (18:08)
[2020-01-12] MEDS ORDERED: MoRPHine SULFATE 2 MG/ML CARP IV PRN (18:08)
[2020-01-12] MEDS ORDERED: MoRPHine SULFATE 10 MG/ML CARP/VIAL IV PRN (18:08)
[2020-01-12] MEDS ORDERED: ACETAMINOPHEN 325 MG TAB PO PRN (18:08)
[2020-01-12] MEDS: LACTATED RINGER'S 1,000 ML IV SCH (19:11)
[2020-01-12] MEDS: HYDROCODONE/ACETAMOPHEN 5/325MG TAB PO PRN (19:18)
[2020-01-12] MEDS: TOPIRAMATE 100 MG TAB PO SCH (21:11)
[2020-01-13] MEDS: HYDROCODONE/ACETAMOPHEN 5/325MG TAB PO PRN ×4 (00:13→13:12)
[2020-01-13] MEDS: LACTATED RINGER'S 1,000 ML IV SCH (04:05)
--- NOTE | 2020-01-13 08:22 | Anesthesiology Progress Note ---
Date of Service January 13, 2020 Anesthesia Post Procedure Vital Signs Vital Signs: Temp Pulse Pulse Pulse Resp BP BP 01/13/20 07:29 36.5 C 50 L 16 114/71 01/13/20 03:31 36.6 C 68 16 100/59 L 01/12/20 23:20 36.8 C 69 17 107/60 01/12/20 21:10 36.9 C 73 18 104/67 01/12/20 20:19 36.9 C 69 16 102/63 01/12/20 19:20 36.9 C 72 16 114/73 01/12/20 18:50 36.8 C 63 16 105/66 01/12/20 18:09 37.0 C 71 16 104/64 01/12/20 17:55 68 16 97/56 L 01/12/20 17:45 37.5 C 65 14 101/56 L 01/12/20 17:35 68 18 104/58 L 01/12/20 17:25 69 18 113/57 L 01/12/20 17:16 37.6 C H 66 20 111/63 01/12/20 15:31 37.8 C H 85 18 113/74 01/12/20 14:00 75 18 105/66 01/12/20 12:50 88 18 117/66 01/12/20 10:15 37.8 C H 82 16 113/67 Pulse Ox 01/13/20 07:29 100 01/13/20 03:31 98 01/12/20 23:20 97 01/12/20 21:10 97 01/12/20 20:19 97 01/12/20 19:20 99 01/12/20 18:50 99 01/12/20 18:09 100 01/12/20 17:55 96 01/12/20 17:45 97 01/12/20 17:35 98 01/12/20 17:25 100 01/12/20 17:16 100 01/12/20 15:31 100 01/12/20 14:00 100 01/12/20 12:50 99 01/12/20 10:15 99 Pain Intensity Abdomen: Pain Intensity: 3 Notes Mental Status: alert / awake / arousable and participated in evaluation Nausea / Vomiting: adequately controlled Pain: adequately controlled Airway Patency, RR, SpO2: stable & adequate BP & HR: stable & adequate Hydration State: stable & adequate Anesthetic Complications: no major complications apparent and Pt Satisfied with anesthetic care
[2020-01-13] MEDS: TOPIRAMATE 100 MG TAB PO SCH (08:27)
[2020-01-13] MEDS ORDERED: FERROUS SULFATE 325 MG TAB PO SCH (09:00)
[2020-01-13] MEDS ORDERED: NON-FORMULARY MEDICATION (Biotin 5 MG) PO SCH (09:00)
[2020-01-13] MEDS ORDERED: FOLIC ACID 400 MCG TAB PO SCH (09:00)
--- NOTE | 2020-01-13 10:32 | Surgery Progress Note ---
Date of Service January 13, 2020 Assessment & Plan (1) Acute appendicitis: Postoperative day #1 status post laparoscopic appendectomy Doing well Can discharge to home after lunch if tolerates regular diet Discussed postoperative activity restrictions Follow-up with Dr. Bernal in 2 weeks Admission and Anticipated Discharge Date Admission Date: January 12, 2020 Subjective Postoperative day #1 status post laparoscopic appendectomy Feels much better Very little abdominal discomfort Denies nausea and vomiting Tolerated diet Physical Exam Gastrointestinal (Abdomen): Inspection/Auscultation: normal bowel sounds and + abdominal surgical incision (Incisions are clean, dry and intact); abdomen not distended Percussion/Palpation: + abdomen tender (Incisional) and abdomen soft Results & Data ([facility]) Vital Signs (Past 12 Hours) Vital Signs Temp Pulse Resp BP Pulse Ox 01/13/20 07:29 36.5 C 50 L 16 114/71 100 01/13/20 03:31 36.6 C 68 16 100/59 L 98 01/12/20 23:20 36.8 C 69 17 107/60 97 (1) Acute appendicitis Acute appendicitis type: with localized peritonitis Appendicitis gangrene presence: unspecified whether gangrene present Appendicitis perforation presence: without perforation Appendicitis abscess presence: without abscess Qualified Code(s): K35.30 - Acute appendicitis with localized peritonitis, without perforation or gangrene
[2020-01-13] MEDS ORDERED: ESCITALOPRAM OXALATE 10 MG TAB PO SCH (11:30)
== END 2020-01-13 16:00 | disposition home or self-care (01) ==
LOC: ED 09:45 → OR 15:10 → 3W 15:10